=== PATIENT | female | born 1965 | race Caucasian/White ===

== ENCOUNTER 2019-12-30 11:04 | Outpatient (CLI) | payer OTHER, SELFPAY ==
--- NOTE | 2019-12-30 11:31 | MM_ITS ---
WS: [id number] DIAGNOSTIC RIGHT DIGITAL MAMMOGRAM WITH CAD HISTORY: HX OF BREAST CA, LEFT mastectomy. COMPARISON: None available. Technique: CC, MLO and ML views. Breast composition: There are scattered areas of fibroglandular density. There are a few scattered b enign calcifications. No clustered calcifications or mass. MM/[place] [id number] IMPRESSION: BI-RADS: 2-Benign FOLLOW UP: 1 Year Follow-up No prior studies for comparison. If prior outside mammograms become available f or review comparison can be performed.
== END 2019-12-30 11:05 | disposition home or self-care (01) ==
LOC: RADSHAW 11:08
PROVIDERS: Family Provider Nurse Practitioner Family; PCP Nurse Practitioner Family; Visit Provider Internal Medicine Hematology & Oncology
DX: Z85.3 Personal history of malignant neoplasm of breast (principal)
CPT/HCPCS: 77065

== ENCOUNTER 2019-12-31 13:10 | Outpatient (CLI) | payer OTHER, SELFPAY ==
[2019-12-31 19:06] LABS: Alanine Aminotransferase 37 U/L (0-33); Albumin Level 4.5 g/dL (3.5-5.2); Alkaline Phosphatase 97 IU/L (35-105); Anion Gap 19.1 (5-19); Aspartate Amino Transferase 40 U/L (0-32); Blood Urea Nitrogen 9 mg/dL (6-20); Calcium 9.8 mg/dL (8.5-10.5); Carbon Dioxide 23 mmol/L (22-29); Chloride 105 mmol/L (98-107); Chol HDL Ratio 3.49 mg/dL (0.0-4.40); Cholesterol 227 mg/dL (0-200); Globulin 3.2 g/dL (1.3-4.6); Glomerular Filtration Rate 86.9 mL/min (90-130); Glucose 55 mg/dL (65-115); HDL Cholesterol 65 mg/dL (60-100); LDL Cholesterol Calculated 148 mg/dL (50-129); LDL HDL Ratio 2.28 RATIO (0.00-3.22); Osmolality Calculated 290 mOsm/kg (285-295); Potassium 4.1 mmol/L (3.5-5.1); Sodium 143 mmol/L (136-145); Total Bilirubin 0.3 mg/dL (0.15-1.2); Total Protein 7.7 g/dL (6.6-8.7); Triglycerides 68 mg/dL (0-150)
[2019-12-31 19:07] LABS: Basophils % 0.5 %; Eosinophils # 0.1 10^3/uL (0.0-0.8); Eosinophils % 1.5 %; Hematocrit 43.5 % (37.0-47.0); Hemoglobin 13.8 g/dL (11.5-15.3); Lymphocytes # 1.6 10^3/uL (0.8-4.8); Lymphocytes % 26.5 %; Mean Corpuscular HGB Conc 31.7 g/dL (30.0-36.0); Mean Corpuscular Hemoglobin 29.3 pg (28.0-34.0); Mean Corpuscular Volume 92.4 fL (81-99); Mean Platelet Volume 11.4 fL (7.4-10.4); Monocytes # 0.3 10^3/uL (0.2-0.9); Monocytes % 5.3 %; Nucleated Red Blood Cells % 0 %; Platelet Count 212 10^3/cmm (130-400); Red Blood Count 4.71 10^6/uL (4.1-5.3); Red Cell Distribution Width 12.3 % (12.1-15.1)
== END 2019-12-31 13:11 | disposition home or self-care (01) ==
LOC: ONCMED 01-03 09:49
PROVIDERS: Absent Provider Internal Medicine Cardiovascular Disease; Family Provider Nurse Practitioner Family; PCP Nurse Practitioner Family; Visit Provider Internal Medicine Hematology & Oncology
DX: Z85.3 Personal history of malignant neoplasm of breast (principal)
CPT/HCPCS: 80053; 80061; 85025

== ENCOUNTER 2020-03-23 14:18 | Outpatient (CLI) | payer OTHER, SELFPAY ==
[2020-03-23 15:40] LABS: Basophils % 0.5 %; Eosinophils # 0.1 10^3/uL (0.0-0.8); Eosinophils % 2.2 %; Hematocrit 42.7 % (37.0-47.0); Hemoglobin 13.9 g/dL (11.5-15.3); Lymphocytes # 1.8 10^3/uL (0.8-4.8); Lymphocytes % 30.1 %; Mean Corpuscular HGB Conc 32.6 g/dL (30.0-36.0); Mean Corpuscular Hemoglobin 30.5 pg (28.0-34.0); Mean Corpuscular Volume 93.8 fL (81-99); Mean Platelet Volume 10.6 fL (7.4-10.4); Monocytes # 0.4 10^3/uL (0.2-0.9); Monocytes % 6.7 %; Neutrophils # 3.5 10^3/uL (1.8-7.7); Neutrophils % 60.3 %; Nucleated Red Blood Cells % 0 %; Platelet Count 201 10^3/cmm (130-400); Red Blood Count 4.55 10^6/uL (4.1-5.3); Red Cell Distribution Width 12.4 % (12.1-15.1); White Blood Count 5.8 10^3/uL (4.0-10.0)
[2020-03-23 16:44] LABS: Alanine Aminotransferase 41 U/L (0-33); Albumin Level 4.5 g/dL (3.5-5.2); Alkaline Phosphatase 84 IU/L (35-105); Anion Gap 19.2 (5-19); Aspartate Amino Transferase 44 U/L (0-32); Blood Urea Nitrogen 13 mg/dL (6-20); Calcium 9.6 mg/dL (8.5-10.5); Carbon Dioxide 24 mmol/L (22-29); Chloride 101 mmol/L (98-107); Globulin 3.2 g/dL (1.3-4.6); Glomerular Filtration Rate 86.9 mL/min (90-130); Glucose 75 mg/dL (65-115); Osmolality Calculated 285 mOsm/kg (285-295); Potassium 4.2 mmol/L (3.5-5.1); Sodium 140 mmol/L (136-145); Total Bilirubin 0.5 mg/dL (0.15-1.2); Total Protein 7.7 g/dL (6.6-8.7)
--- NOTE | 2020-03-24 09:21 | ONC FU_ITS ---
Dr. Atkinson follow up note Patient: Rabia Burt Unit #: [id number]: 1965 Dicatated By: Rudy Atkinson M.D.Date of Visit:Mar 23, 2020 Onc Med Follow-up/Prog Note History of Present Illness: Mrs. Rabia Burt , is a 54-year-old female who was initially diagnosed with left breast carcinoma on 09/03/2006, final pathology report showed infiltrating ductal carcinoma, high-grade, borderline ER positive HER-2/shelli negative, T2, pN 3, M0 stage IIa and at that time she underwent left modified radical mastectomy followed by systemic chemotherapy ???4 cycles and postmastectomy radiation therapy. Oncotype DX score was 47. Patient doesn't remember the name of chemotherapy regimen. And she did fine from oncology point of view but during follow-up in April 2018 she was noted to have symptoms suggestive of congestive heart failure which occurred a few days after getting the flu shot patient was seen by cardiology and her ejection fraction was 25%, she underwent cardiac angiogram which showed right coronary mid vessel lesion with a 95% stenosis and it was stented. There was also proximal vessel lesion with 70% stenosis and was also stented. With that her ejection fraction improved, as per patient her last echocardiogram done in December 2018, showed her ejection fraction was around 48%. 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 Last time she saw her medical oncologist in [place] on 12/14/2018 and she was told she has no evidence of recurrence disease at 10+ years post diagnosis and treatment and was advised to follow with cardiology regarding congestive heart failure and 6 month to yearly follow-up with oncology. Her last CBC was done on 06/01/2019 showed white blood count 4 hemoglobin 14.3 crit 42 platelets 192,000 with a normal differential and CMP was within normal limit except AST was 52 was 51, as per patient her primary care physician told her it could be due to Crestor and being monitored by her PMD. Came for follow-up, denies any specific complaints, no fever chills, no nausea or vomiting, no diarrhea or constipation, no new bony pains, patient is trying to lose weight intentionally,by watching diet and exercising. Medications: Atorvastatin Calcium 1 Tablet (of 40 mg) Oral daily, Carvedilol 1 Tablet (of 25 mg) Oral b.i.d., Clopidogrel Bisulfate 1 Tablet (of 75 mg) Oral daily, Ezetimibe 1 Tablet (of 10 mg) Oral daily, Losartan Potassium 1 Tablet (of 50 mg) Oral daily, Myrbetriq 1 Tablet (of 50 mg) Tablet SR 24 HR Oral daily, Rosuvastatin Calcium 1 Tablet (of 20 mg) Oral daily Allergies: antihistimines and Aspirin. Review of Systems: Review of Systems is not available for this patient. Vital Signs: Performed on Mar 23, 2020 15:52 Height - 60.00 in Weight - 135.6 lbs (LOW) BSA - 1.58 sq.m BMI - 26.48 Temperature - 99.0 F (HIGH) Pulse - 70 /min Respiration - 18 /min BP - 153/104 mm(hg) (HIGH) O2 Sat - 97 % Pain - 0 Performance Status: 0 - Fully active, able to carry on all predisease activities without restrictions. (ECOG) Physical Examination: ENMT - No mouth sores, no thrush, no jaundice, Respiratory - Lungs are clear, Cardiovascular - Regular rate and rhythm of heart, Abdomen - Soft, bowel sounds present, nontender, Extremities - No visible edema. Lab/Imaging: Test performed on Dec 31, 2019 13:10 Cholesterol, Total 227 mg/dL Sodium 143 mmol/L Potassium 4.1 mmol/L Triglycerides 68 mg/dL Chloride 105 mmol/L LDL Cholesterol 148 mg/dL CO2 23 mmol/L Anion Gap 19.1 HDL Cholesterol 65 mg/dL BUN 9 mg/dL Cholesterol/HDL Ratio 3.49 mg/dL Creatinine 0.7 mg/dL LDL / HDL Ratio 2.28 RATIO Cr Clearance (Est) 92.0800 mL/min eGFR 86.9 mL/min Glucose 55 mg/dL Calcium 9.8 mg/dL Protein, Total 7.7 g/dL Albumin 4.5 g/dL Globulin 3.2 g/dL Bilirubin, Total 0.3 mg/dL ALT (SGPT) 37 U/L AST (SGOT) 40 U/L Alkaline Phosphatase 97 IU/L WBC 6.0 10 3/uL RBC 4.71 10 6/uL HGB 13.8 g/dL HCT 43.5 % MCV 92.4 fL MCH 29.3 pg MCHC 31.7 g/dL RDW 12.3 % Platelet Count 212 10 3/cmm MPV 11.4 fL Neutrophils 4.0 10 3/uL Lymphocytes 1.6 10 3/uL Monocytes 0.3 10 3/uL Eosinophils 0.1 10 3/uL Basophils 0.0 10 3/uL Neutrophil % 66.0 % Lymphocyte % 26.5 % Monocyte % 5.3 % Eosinophil % 1.5 % Basophils % 0.5 % Impression: History of infiltrating ductal carcinoma of left breast, status post left modified radical mastectomy with left axillary lymph node dissection done on 09/03/2006 final pathology report showed pT2,N0,M0 stage II a,ER positive but borderline, HER-2/shelli negative Oncotype DX score 47 Status post 4 cycles of adjuvant chemotherapy followed by chest wall radiation therapy History of congestive heart failure diagnosed in April 2018 with ejection fraction 25%, status post coronary angiogram showed coronary artery disease status post stent placement. Being followed by cardiology and now with congestive heart failure management, her last echo done in November or December 2018 showed ejection fraction 48% Plan: Discussed with patient regarding her labs white blood count 5.8 hemoglobin 13.9 hematocrit 42.7 platelets 201,000, CMP is pending Clinically, patient is doing well with no signs symptom suggestive of recurrence of disease. Patient was supposed to get DEXA scan prior to this visit but due to changing her insurance, patient is considering establishing her primary care with [facility] in [place], [place] and she will get her DEXA scan there. Patient is also considering her history of breast cancer follow-up with primary care at [facility] and their women's clinic and we will see us on as-needed basis. Signed By: Rudy Atkinson M.D. <<Signature on File>>
== END 2020-03-23 14:19 | disposition home or self-care (01) ==
LOC: ONCMED 14:21
PROVIDERS: PCP Nurse Practitioner Family; Visit Provider Internal Medicine Hematology & Oncology
DX: Z08 Encounter for follow-up examination after completed treatment for malignant neoplasm (principal); Z85.3 Personal history of malignant neoplasm of breast; I50.9 Heart failure, unspecified; Z90.12 Acquired absence of left breast and nipple; Z92.21 Personal history of antineoplastic chemotherapy; Z92.3 Personal history of irradiation
CPT/HCPCS: 36415; 80053; 85025; G0463

== ENCOUNTER → 2020-06-12 14:39 | Outpatient (BNVA) | payer OTHER, SELFPAY | PROVIDERS: Family Provider Nurse Practitioner Family; PCP Nurse Practitioner Family; Visit Provider Internal Medicine Cardiovascular Disease | DX: E78.00 Pure hypercholesterolemia, unspecified (principal); I10 Essential (primary) hypertension; I25.10 Atherosclerotic heart disease of native coronary artery without angina pectoris | CPT/HCPCS: 80053; 80061; 83721 ==

== ENCOUNTER 2021-05-17 13:17 | Outpatient (CLI) | payer OTHER, SELFPAY ==
--- NOTE | 2021-05-17 13:23 | MM_ITS ---
WS: [id number] RIGHT DIGITAL diagnostic MAMMOGRAM WITH CAD HISTORY: HX OF LT BREAST CA; LT MASTECTOMY COMPARISON: 12/30/2019 Technique: CC, MLO and ML views. Breast composition: There are scattered areas of fibroglandular density. Benign calcifications scatt ered within the breast. No mass. No distortion. MM/[place] [id number] IMPRESSION: BI-RADS: 2-Benign FOLLOW UP: 1 Year Follow-up
== END 2021-05-17 13:18 | disposition home or self-care (01) ==
LOC: RADSHAW 13:22
PROVIDERS: PCP Registered Nurse; Visit Provider Family Medicine
DX: Z85.3 Personal history of malignant neoplasm of breast (principal); Z90.12 Acquired absence of left breast and nipple
CPT/HCPCS: 77065

== ENCOUNTER → 2021-06-12 14:46 | Outpatient (BNVA) | payer OTHER, SELFPAY | PROVIDERS: PCP Registered Nurse; Visit Provider Internal Medicine Cardiovascular Disease | DX: E78.00 Pure hypercholesterolemia, unspecified (principal); I42.0 Dilated cardiomyopathy; I25.10 Atherosclerotic heart disease of native coronary artery without angina pectoris; I10 Essential (primary) hypertension; I42.9 Cardiomyopathy, unspecified; I50.22 Chronic systolic (congestive) heart failure | CPT/HCPCS: 80053; 80061; 83721; 83735; 85025 ==

== ENCOUNTER → 2021-08-30 10:34 | Outpatient (BNVA) | payer OTHER, SELFPAY | PROVIDERS: PCP Registered Nurse; Visit Provider Internal Medicine Cardiovascular Disease | DX: E78.00 Pure hypercholesterolemia, unspecified (principal); I25.10 Atherosclerotic heart disease of native coronary artery without angina pectoris; I10 Essential (primary) hypertension | CPT/HCPCS: 80061; 80076 ==

== ENCOUNTER 2021-12-06 09:03 | Outpatient (CLI) | payer OTHER, SELFPAY ==
[2021-12-06 10:45] LABS: Chol HDL Ratio 3.07 mg/dL (0.0-4.40); Cholesterol 261 mg/dL (0-200); HDL Cholesterol 85 mg/dL (60-100); LDL Cholesterol Calculated 162 mg/dL (50-129); LDL HDL Ratio 1.91 RATIO (0.00-3.22); Triglycerides 69 mg/dL (0-150)
== END 2021-12-06 09:04 | disposition home or self-care (01) ==
PROVIDERS: PCP Registered Nurse; Visit Provider Internal Medicine Cardiovascular Disease
DX: E78.00 Pure hypercholesterolemia, unspecified (principal)
CPT/HCPCS: 80061

== ENCOUNTER 2022-03-29 13:55 | Outpatient (CLI) | payer OTHER, SELFPAY ==
--- NOTE | 2022-03-29 14:04 | MM_ITS ---
WS: [id number] DIAGNOSTIC RIGHT DIGITAL BREAST TOMOSYNTHESIS MAMMOGRAPHY WITH CAD. HISTORY: HX OF BREAST Ca; lt MAST COMPARISON: 05/17/2021 and 12/30/2019 Technique: CC, MLO and ML views. Breast composition: There are scattered areas of fibroglandular density. No suspicious masses or sonal cifications. Benign lymph nodes towards the axilla. MM/[place] [id number] IMPRESSION: BI-RADS: 2-Benign FOLLOW UP: 1 Year Follow-up
== END 2022-03-29 13:56 | disposition home or self-care (01) ==
PROVIDERS: PCP Registered Nurse; Visit Provider Registered Nurse
DX: Z85.3 Personal history of malignant neoplasm of breast (principal); Z90.11 Acquired absence of right breast and nipple
CPT/HCPCS: 77061

== ENCOUNTER 2023-01-07 12:46 | Emergency (ER) | payer OTHER, SELFPAY ==
[2023-01-07] VITALS (14 sets, daily range): BP systolic 136–155; BP diastolic 76–93; PULSE 75–88; RESP 16–23; TEMP 36.6; O2SAT 97–99
--- NOTE | 2023-01-07 12:50 | ED_ITS ---
HPI - Fall General: Chief Complaint: Fall Stated Complaint: FALL/ HEAD & NECK PAIN Time Seen by Provider: 01/07/23 12:50 Source: patient Mode of arrival: EMS History of Present Illness: 57-year-old female presents to the emergency room after a fall at home. She is on clopidogrel. She was going down a short flight of stairs stumbled and fell and landed on her face there was a brief loss of consciousness no vomiting. This was witnessed by her significant other who called the ambulance. On arrival here she has blood about her nares and lips as well as some minor abrasions on her face she cannot recall anything that happene d she remembers being brought here by the ambulance but cannot recall anything prior to that. No vomiting since the episode. Report from EMS that she was fixated on certain objects and tasks initially seen and evaluated the patient on scene. She denies any chest pain or difficulty breathing denies any other injuries anywhere else. She does not recall ever having episodes of passing out before. MD complaint: fall Onset (ago): minute(s) Fall from: standing Fall witnessed: yes, by family Place fall occurred: home Loss of consciousness: Seconds Prolonged down time: no Symptoms prior to fall: none Context: tripped/slipped Location of injury: head, face and neck Associated symptoms-after fall: Denies abdominal pain, chest pain, confusion, difficulty walking, headache(s), hematuria, lightheadedness, neck pain, numbness, short of breath, vertigo or weakness Review of Systems Const: Denies: fever(s), chills, body aches, change in appetite, fatigue or malaise ENMT: Denies: throat pain, ear or mastoid pain, nasal discharge or nasal congestion Card: Denies: chest pain or lightheadedness Resp: Denies: dyspnea, productive cough or non-productive cough GI: Denies: abdominal pain : Denies: hematuria Musc: Denies: neck pain Skin/Breast: Denies: rash or pruritus Neuro: Denies: headache(s), difficulty walking, vertigo or confusion PFS ED PFSH: Medical History CAD (coronary artery disease) Chronic systolic heart failure HTN (hypertension) Hypercholesteremia Family History Other Cancer Myocardial infarction Pacemaker Social History Smoking and tobacco status: former smoker Alcohol intake: current Physical Exam Const: GENERAL APPEARANCE: cooperative and comfortable ORIENTATION/CONSCIOUSNESS: Yes awake and Yes confused HENMT: COMMON NORMALS: normocephalic and hearing grossly normal bilaterally HEAD & SCALP: normocephalic OTHER: Deformity of nasal bone Eye: COMMON NORMALS: Equal, round and reactive pupils present, EOMs intact bilaterally and conjunctivae normal CONJUNCTIVA: Yes conjunctivae normal PUPIL: Yes Equal, round and reactive pupils present Resp: COMMON NORMALS: normal respiratory effort, No retractions, No use of accessory muscles and clear to auscultation bilaterally AUSCULTATION: clear to auscultation bilaterally Cardio: COMMON NORMALS: regular rate, regular rhythm and No murmurs present (Cardio) RATE: regular rate RHYTHM: regular rhythm GI: COMMON NORMALS: Soft to palpation and No hepatosplenomegaly present AUSCULTATION: Yes normoactive bowel sounds PALPATION: Yes Soft to palpation, No Tenderness to palpation present (GI), No Guarding due to palpation present (GI) and Yes No hepatosplenomegaly present Extremity: COMMON NORMALS: normal to inspection, capillary refill normal, no clubbing, cyanosis or edema, no calf tenderness and no pedal edema Skin: COMMON NORMALS: no rashes or lesions noted GENERAL SKIN EXAM: no rashes or lesions noted Course 2 Vital Signs: Vital signs: Vital Signs Temperature 97.9 F 01/07/23 12:46 Pulse Rate 82 01/07/23 13:55 Respiratory Rate 16 01/07/23 13:55 Blood Pressure 155/84 01/07/23 14:00 Pulse Oximetry 98 01/07/23 14:00 Oxygen Delivery Me thod 01/07/23 13:55 MDM - Fall Medical Decision Making C-spine cleared on the CT. CT this brain shows subarachnoid hemorrhage facial bones show a nasal bone fracture. [facility]red to [facility] receiving transfer via air ambulance for subarachnoid hemorrhage on anticoagulant. Medical Records I reviewed the patient's medical records. Lab Data I reviewed the patient's lab results. 01/07/23 13:00 01/07/23 13:00 Radiology Impressions Cervical Spine CT 01/07/23 12:54 IMPRESSION: No evidence of acute fracture or dislocation. Face CT 01/07/23 12:54 IMPRESSION: 1. Minimally displaced RIGHT nasal bone fracture. 2. No other visualized acute facial fractures. 3. Soft tissue edema overlying the nasal bones and mid face Head CT 01/07/23 12:55 IMPRESSION: 1. Small amount of subarachnoid hemorrhage in the RIGHT greater than LEFT frontal lobes and LEFT parietal lobe. 2. Tiny amount of subarachnoid hemorrhage in the LEFT inferior parasagittal frontal lobe. 3. No significant mass effect or midline shift. No hydrocephalus. Notified Rome Tong DO at 01/07/2023 1:41 PM. Laboratory Results WBC 3.4 10^3/uL (4.0-10.0) L 01/07/23 13:00 RBC 3.92 10^6/uL (4.1-5.3) L 01/07/23 13:00 Hgb 12.3 g/dL (11.5-15.3) 01/07/23 13:00 Hct 37.0 % (37.0-47.0) 01/07/23 13:00 MCV 94.4 fl (81-99) 01/07/23 13:00 MCH 31.4 pg (28.0-34.0) 01/07/23 13:00 MCHC 33.2 g/dL (30.0-36.0) 01/07/23 13:00 RDW 12.0 % (12.1-15.1) L 01/07/23 13:00 Plt Count 122 10^3/cmm (130-400) L 01/07/23 13:00 MPV 11.2 fL (7.4-10.4) H 01/07/23 13:00 Neut % (Auto) 55.9 % 01/07/23 13:00 Lymph % (Auto) 25.9 % 01/07/23 13:00 [place] % (Auto) 13.5 % 01/07/23 13:00 Eos % (Auto) 3.5 % 01/07/23 13:00 Baso % (Auto) 0.9 % 01/07/23 13:00 Neut # (Auto) 1.90 10^3/uL (1.8-7.7) 01/07/23 13:00 Lymph # (Auto) 0.9 10^3/uL (0.8-4.8) 01/07/23 13:00 [place] # (Auto) 0.5 10^3/uL (0.2-0.9) 01/07/23 13:00 Eos # (Auto) 0.1 10^3/uL (0.0-0.8) 01/07/23 13:00 Baso # (Auto) 0.0 10^3/uL (0.0-0.1) 01/07/23 13:00 Nucleated RBC % (auto) 0 % 01/07/23 13:00 Nucleated RBCs # 0.0 /100WBC 01/07/23 13:00 Sodium 139 mmol/L (136-145) 01/07/23 13:00 Potassium 3.8 mmol/L (3.5-5.1) 01/07/23 13:00 Chloride 102 mmol/L (98-107) 01/07/23 13:00 Carbon Dioxide 21 mmol/L (22-29) L 01/07/23 13:00 Anion Gap 19.8 (5-19) H 01/07/23 13:00 BUN 18 mg/dL (6-20) 01/07/23 13:00 Creatinine 1.0 mg/dL (0.5-0.9) H 01/07/23 13:00 GFR Calculation 56.9 mL/min (90-130) L 01/07/23 13:00 Glucose 90 mg/dL (65-115) 01/07/23 13:00 POC Glucose 97 mg/dL (70-110) 01/07/23 12:50 Calculated Osmolality 289 mOsm/kg (285-295) 01/07/23 13:00 Calcium 9.0 mg/dL (8.5-10.5) 01/07/23 13:00 Total Bilirubin 0.8 mg/dL (0.15-1.2) 01/07/23 13:00 AST 195 U/L (0-32) H 01/07/23 13:00 ALT 192 U/L (0-33) H 01/07/23 13:00 Alkaline Phosphatase 103 U/L (35-105) 01/07/23 13:00 Total Protein 6.7 g/dL (6.6-8.7) 01/07/23 13:00 Albumin 3.9 g/dL (3.5-5.2) 01/07/23 13:00 Globulin 2.8 g/dL (1.3-4.6) 01/07/23 13:00 Urine Color Yellow (Yellow) 01/07/23 14:08 Urine Appearance Clear (CLEAR) 01/07/23 14:08 Urine pH 5 (5-7) 01/07/23 14:08 Ur Specific [place] 1.010 (1.005-1.030) 01/07/23 14:08 Urine Protein Neg (Negative) 01/07/23 14:08 Urine Glucose (UA) Norm (Normal) 01/07/23 14:08 Urine Ketones Negative (Negative) 01/07/23 14:08 Urine Blood Neg (Negative) 01/07/23 14:08 Urine Nitrate Negative (Negative) 01/07/23 14:08 Urine Bilirubin Neg (Negative) 01/07/23 14:08 Urine Urobilinogen Neg mg/dL (Negative) 01/07/23 14:08 Ur Leukocyte Esterase Negative (Negative) 01/07/23 14:08 Discharge Plan Discharge Patient Disposition: Transfer to ED Clinical Impression: Subarachnoid hemorrhage, Fall, Closed fracture nasal bone Condition: Stable Prescriptions: No Action clopidogrel 75 mg tablet 75 mg PO DAILY losartan 50 mg tablet 50 mg PO DAILY nitroglycerin 0.4 mg tablet, sublingual 0.4 mg sublingual Q5M PRN (Reason: chest pain) Qty: 25 4RF Rx Instructions: do not exceed 3 doses per episode carvedilol 25 mg tablet 25 mg PO BID Rx Instructions: must administer with a meal/food furosemide 20 mg tablet 20 mg PO DAILY PRN (Reason: edema) Qty: 30 6RF Praluent Pen 75 mg/mL pen injector 75 mg SUBCUT Q14D Qty: 2 6RF Rx Instructions: inject into abdomen, thigh, or upper arm (deltoid muscle); rotate sites alprazolam 1 mg tablet 1 mg PO DAILY PRN (Reason: Anxiety) tolterodine 4 mg capsule,extended release 24hr 4 mg PO DAILY Referrals: Marianela Curtis [Primary Care Provider] - Coding Level of Care Code ED Supervisor Color Making for Fritz Thibodeaux
--- NOTE | 2023-01-07 12:54 | CT_ITS ---
WS: [id number] CT FACIAL BONES TECHNIQUE: Noncontrast facial bones with coronal and sagittal reformatted images. CLINICAL INFORMATION: trauma COMPARISON: None. DLP: 1485.[address] scans at [facility] use at least one of these dose optimization techniques: automated e xposure control; mA and/or kV adjustment per patient size (includes targeted exams where dose is matc hed to clinical indication); or iterative reconstruction. FINDINGS: Soft tissue edema overlying the anterior nasal bones. Small amount of subcutaneous emphysema. Minimal ly displaced RIGHT nasal bone fractures. Chronic appearing LEFT to RIGHT nasal septal deviation. Mild mucosal thickening in the ethmoid air cells. Fluid in the nasal turbinates. Maxillary sinuses and sp henoid sinuses are well aerated. Mastoid air cells are well aerated. Normal pterygoid plates. Normal zygoma. Inferior orbits appear in tact. Normal lamina papyracea. Lateral orbits appear intact. No evidence of mandibular fracture dislo cation. CT/CT facial bones wo con* [id number] IMPRESSION: 1. Minimally displaced RIGHT nasal bone fracture. 2. No other visualized acute facial fractures. 3. Soft tissue edema overlying the nasal bones and mid face
--- NOTE | 2023-01-07 12:54 | CT_ITS ---
WS: [id number] CT CERVICAL TRAUMA TECHNIQUE: Noncontrast CT of the cervical spine with coronal and sagittal reformatted images. CLINICAL INFORMATION: trauma COMPARISON: None. DLP: 1485.[address] scans at [facility] use at least one of these dose optimization techniques: automated e xposure control; mA and/or kV adjustment per patient size (includes targeted exams where dose is matc hed to clinical indication); or iterative reconstruction. FINDINGS: Straightening of the normal cervical lordosis. Mild spondylitic changes. Disc space narrowing worse a t C5-C6 and C6-C7. Normal craniocervical junction. Normal C1-C2 articulation. Dens is normal in appea sherrell. Normal occipital condyles. No high-grade spinal canal narrowing. Normal C1 ring. No evidence o f acute fracture or dislocation. Small 6 mm low-attenuation RIGHT thyroid nodule. Normal prevertebral soft tissues. Mastoids air cells are well aerated. CT/CT cervical spin wo con* [id number] IMPRESSION: No evidence of acute fracture or dislocation.
[2023-01-07 12:55] LABS: Glucose Point of Care 97 mg/dL (70-110)
--- NOTE | 2023-01-07 12:55 | CT_ITS ---
WS: [id number] CT HEAD TECHNIQUE: Noncontrast CT of the head obtained from the skullbase to the vertex. CLINICAL INFORMATION: trauma COMPARISON: None. DLP: 1485.[address] scans at [facility] use at least one of these dose optimization techniques: automated e xposure control; mA and/or kV adjustment per patient size (includes targeted exams where dose is matc hed to clinical indication); or iterative reconstruction. FINDINGS: Soft tissue edema overlying the anterior facial soft tissues. No calvarial fractures. Masto id air cells well aerated. Normal posterior nasopharynx. Small amount of subarachnoid hemorrhage within the RIGHT frontal lobe and LEFT parietal lobe. Additio nal suggestion of a tiny amount of subarachnoid hemorrhage in the LEFT frontal lobe. Tiny amount of s ubarachnoid hemorrhage in the LEFT inferior parasagittal frontal lobe. CT/CT head wo con* [id number] IMPRESSION: 1. Small amount of subarachnoid hemorrhage in the RIGHT greater than LEFT fron [place] lobes and LEFT parietal lobe. 2. Tiny amount of subarachnoid hemorrhage in the LEFT inferior parasagittal fr ontal lobe. 3. No significant mass effect or midline shift. No hydrocephalus. Notified Rome Tong DO at 01/07/2023 1:41 PM.
[2023-01-07 13:09] LABS: Basophils % 0.9 %; Eosinophils # 0.1 10^3/uL (0.0-0.8); Eosinophils % 3.5 %; Hemoglobin 12.3 g/dL (11.5-15.3); Lymphocytes # 0.9 10^3/uL (0.8-4.8); Lymphocytes % 25.9 %; Mean Corpuscular HGB Conc 33.2 g/dL (30.0-36.0); Mean Corpuscular Hemoglobin 31.4 pg (28.0-34.0); Mean Corpuscular Volume 94.4 fl (81-99); Mean Platelet Volume 11.2 fL (7.4-10.4); Monocytes # 0.5 10^3/uL (0.2-0.9); Monocytes % 13.5 %; Neutrophils % 55.9 %; Nucleated Red Blood Cells % 0 %; Platelet Count 122 10^3/cmm (130-400); Red Blood Count 3.92 10^6/uL (4.1-5.3); White Blood Count 3.4 10^3/uL (4.0-10.0)
[2023-01-07 13:24] LABS: Alanine Aminotransferase 192 U/L (0-33); Albumin Level 3.9 g/dL (3.5-5.2); Alkaline Phosphatase 103 U/L (35-105); Anion Gap 19.8 (5-19); Aspartate Amino Transferase 195 U/L (0-32); Blood Urea Nitrogen 18 mg/dL (6-20); Carbon Dioxide 21 mmol/L (22-29); Chloride 102 mmol/L (98-107); Globulin 2.8 g/dL (1.3-4.6); Glomerular Filtration Rate 56.9 mL/min (90-130); Glucose 90 mg/dL (65-115); Osmolality Calculated 289 mOsm/kg (285-295); Potassium 3.8 mmol/L (3.5-5.1); Sodium 139 mmol/L (136-145); Total Bilirubin 0.8 mg/dL (0.15-1.2); Total Protein 6.7 g/dL (6.6-8.7)
--- NOTE | 2023-01-07 13:27 | ECG_ITS ---
[facility] Test Date: 2023-01-07 Pat Name: Rabia Burt Department: Room: Gender: Female Caul Dresser: : 1965 Requested By: Rome Perdomo Order Number: [id number] To MD: Tracy Michelle M.D. Measurements Intervals [place] Rate: 78 P: 57 NC: 184 QRS: 64 QRSD: 90 T: 66 QT: 400 QTc: 457 Interpretive Statements SINUS RHYTHM No previous ECG available for comparison Electronically Signed On 01-08-2023 2:18:17 CDT by Tracy Michelle M.D. [email or web address]
[2023-01-07 14:31] LABS: Add Urine Microscopic? NO; Charge for UA Resulting for Rev
[2023-01-07 14:35] LABS: Bilirubin Urine Neg (Negative); Blood Urine Neg (Negative); Glucose Urine UA Norm (Normal); Ketones Urine Negative (Negative); Leukocyte Esterase Urine Negative (Negative); Nitrate Urine Negative (Negative); Protein Urine Neg (Negative); Urine Appearance Clear (CLEAR); Urine Color Yellow (Yellow); Urobilinogen Urine Neg (Negative); pH Urine 5 (5-7)
== END 2023-01-07 14:20 ==
PROVIDERS: Emergency Provider Family Medicine; PCP Registered Nurse
DX: S02.2XXA Fracture of nasal bones, initial encounter for closed fracture (principal); S06.6XAA Traumatic subarachnoid hemorrhage with loss of consciousness status unknown, initial encounter; Z79.02 Long term (current) use of antithrombotics/antiplatelets; I25.10 Atherosclerotic heart disease of native coronary artery without angina pectoris; I11.0 Hypertensive heart disease with heart failure; I50.22 Chronic systolic (congestive) heart failure; Z87.891 Personal history of nicotine dependence; W01.0XXA Fall on same level from slipping, tripping and stumbling without subsequent striking against object, initial encounter
CPT/HCPCS: 36415; 36416; 70450; 70486; 72125; 80053; 81003; 82962; 85025; 93005; 99285

== ENCOUNTER 2023-02-24 12:51 | Emergency (ER) | payer OTHER, SELFPAY ==
[2023-02-24 12:52] VITALS: BP 111/62; PULSE 83; RESP 18; TEMP 36.8; O2SAT 95; BMI 26.7
--- NOTE | 2023-02-24 12:53 | ECG_ITS ---
[facility] Test Date: 2023-02-24 Pat Name: Rabia Burt Department: Room: Gender: Female Director Learning And Development: : 1965 Requested By: Jewel Kelly Order Number: [id number] [id number] MD: Philip Amezquita M.D. Measurements Intervals [place] Rate: 84 P: 64 IA: 185 QRS: 67 QRSD: 88 T: 84 QT: 439 QTc: 521 Interpretive Statements SINUS RHYTHM POSSIBLE LEFT ATRIAL ENLARGEMENT [-0.1mV P-WAVE IN V1/V2] PROLONGED QT INTERVAL Compared to ECG 01/07/2023 13:27:00 Prolonged QT interval now present Electronically Signed On 02-24-2023 23:26:38 CDT by Philip Amezquita M.D. [email or web address]
[2023-02-24 13:26] VITALS: BP 111/62; PULSE 84; O2SAT 98
--- NOTE | 2023-02-24 13:29 | XRR_ITS ---
PROCEDURE INFORMATION: Exam: XR Chest Exam date and time: 02/24/2023 12:36 PM Age: 57 years old Clinical indication: Other: Syncope; Prior surgery; Surgery date: 6+ months; Surgery type: Breast; Additional info: Syncope and collapse TECHNIQUE: Imaging protocol: Radiologic exam of the chest. Views: 1 view. COMPARISON: CT cervical spin wo con* [id number] 01/07/2023 1:11 PM FINDINGS: Lungs: Lungs are clear. Pleural spaces: There is no pleural effusion or pneumothorax. Heart/Mediastinum: Cardiomediastinal contours are unremarkable. Bones/joints: Bones are unremarkable. XR/XR chest 1V portable [id number] IMPRESSION: No acute findings.
--- NOTE | 2023-02-24 13:29 | CTR_ITS ---
PROCEDURE INFORMATION: Exam: CT Head Without Contrast Exam date and time: 02/24/2023 2:00 PM Age: 57 years old Clinical indication: Syncope and collapse TECHNIQUE: Imaging protocol: Computed tomography of the head without contrast. Radiation optimization: All CT scans at this facility use at least one of these dose optimization techniques: automated exposure control; mA and/or kV adjustment per patient size (includes targeted exams where dose is matched to clinical indication); or iterative reconstruction. REPORTING DATA: Count of CT and Cardiac NM exams in prior 12 months: This patient has received 3 known CTs and 0 known cardiac nuclear medicine studies in the 12 months prior to the current study. COMPARISON: CT head wo con* [id number] 01/07/2023 1:11 PM RADIATION DOSE METRICS: Total DLP (mGy-cm): 981.38 FINDINGS: Brain: Right frontoparietal mixed density subdural fluid collection measures 11 mm in thickness. There is progressively increased attenuation in the dependent portion of the collection. There is mild mass effect with 2-3 mm leftward midline shift. No overlying sulcal effacement. Brain is unremarkable otherwise. Cerebral ventricles: There is no significant ventricular dilation. The basal cisterns are unremarkable. Paranasal sinuses: The paranasal sinuses are clear. Mastoid air cells: The mastoid air cells are clear. Bones/joints: The calvarium is intact. Soft tissues: The visible extracranial soft tissues are unremarkable. CT/CT head wo con* [id number] IMPRESSION: 1. Age-indeterminate mixed density right frontoparietal subdural hematoma of 11 mm thickness producing mild mass effect with 2-3 mm leftward midline shift. This finding is new since 01/07/2023. 2. Subarachnoid hemorrhage visible on 01/07/2023 has resolved.
--- NOTE | 2023-02-24 13:29 | W.ED.WEAKNES ---
HPI - Weakness General: Chief complaint: Weakness Stated complaint: RAPID RESPONSE Time Seen by Provider: 02/24/23 13:11 History of Present Illness: 57-year-old female presents to the emergency department chief complaint of having Did not been eating or drinking anything substantial today in which she passed out in her chair a she was a rapid response was called per staff patient was unresponsive with a low blood pressure of 80s over 50s patient was transported down to the ER for further assessment and management. Patient does not recall any cardiac history reports no chest pain palpitations or shortness of breath prior to her event she does reports she has been dieting excessively and has had minimal water today patient does not report striking her head during the event does not recall any other associated symptoms. Associated symptoms: Denies chest pain, chills, fever(s), headache(s), nausea or vomiting Review of Systems General: Reports: 10 or more systems reviewed and unremarkable except in HPI and below Const: Denies: fever(s), chills, fatigue or malaise Eyes: Denies: change in vision or blurry vision Card: Denies: chest pain or palpitations Resp: Denies: dyspnea or productive cough GI: Denies: abdominal pain, nausea or vomiting : Denies: flank pain Musc: Denies: extremity pain or extremity swelling Skin/Breast: Denies: rash or pruritus Neuro: Reports: difficulty walking (Syncope); Denies: headache(s) Psych: Denies: anxiety or depression [place]/Lymph: Denies: easy bleeding All/Imm: Denies: urticaria, throat swelling or facial swelling [facility] PFSH: Medical History CAD (coronary artery disease) Chronic systolic heart failure HTN (hypertension) Hypercholesteremia Family History Other Cancer Myocardial infarction Pacemaker Social History Smoking and tobacco status: former smoker Alcohol intake: current Substance/Drug Use: never Physical Exam Narrative: EXAM NARRATIVE: Patient has no focal neurodeficits on exam with a GCS of 15 with a NIH of 0 Const: COMMON NORMALS: no acute distress, patient oriented x3 and healthy appearing HENMT: COMMON NORMALS: normocephalic and atraumatic HEAD & SCALP: normocephalic and atraumatic Eye: COMMON NORMALS: Equal, round and reactive pupils present and EOMs intact bilaterally PUPIL: Yes Equal, round and reactive pupils present Neck/C-Spine: COMMON NORMALS: full ROM, supple and no JVD Lymph: LYMPHATIC: no lymphadenopathy noted Chest: COMMONS NORMALS: normal inspection of the chest and normal palpation of entire chest wall Resp: COMMON NORMALS: normal respiratory effort, No retractions and clear to auscultation bilaterally EFFORT & INSPECTION: Yes able to speak in complete sentences and Yes symmetric chest movement AUSCULTATION: clear to auscultation bilaterally Cardio: COMMON NORMALS: no JVD, regular rate and regular rhythm RATE: regular rate RHYTHM: regular rhythm GI: COMMON NORMALS: Normal to inspection, nondistended, normoactive bowel sounds present, Soft to palpation and non-tender INSPECTION: Yes normal to inspection PALPATION: Yes Soft to palpation : COMMON NORMALS: Yes no CVA tenderness BLADDER/KIDNEY EXAM: Yes no CVA tenderness Back/Pelvis: COMMON NORMALS: no CVA tenderness Extremity: COMMON NORMALS: normal to inspection and full ROM Neuro: COMMON NORMALS: patient oriented x3, CN's II-XII intact bilaterally, moves all extremities and no focal motor deficits Psych: COMMON NORMALS: mental status grossly normal, Normal thought process present, cooperative and normal affect THOUGHT PROCESS: Normal thought process present Skin: COMMON NORMALS: no rashes or lesions noted GENERAL SKIN EXAM: no rashes or lesions noted Course Vital Signs: Vital signs: Vital Signs Temperature 98.2 F 02/24/23 12:52 Pulse Rate 80 02/24/23 16:38 Respiratory Rate 22 H 02/24/23 16:38 Blood Pressure 149/92 02/24/23 16:38 Pulse Oximetry 97 02/24/23 16:38 Oxygen Delivery Me thod Room Air 02/24/23 12:52 MDM - Weakness Medical Decision Making Due to the patient's symptoms and condition a basic cardio and neuro work-up will be obtained we will continue to follow. and it was noted by nursing staff during their initial assessment the patient did report having thoughts intermittently of homicidal suicide upon direct questioning by myself the patient reports these are just fleeting which currently she has no thoughts of homicide or suicide does report that life is rough however she is currently seeing therapist as well as S resource. We will continue to follow with a basic medical work-up. Patient was found to have an 11 mm right sided frontoparietal subdural hematoma with 2 to 3 mm of shift left to right patient's blood alcohol level was also found to be elevated to 251 advised patient and family these findings which I recommend transfer to high-level care with trauma services in which after long debate the patient has agreed as per son's request to be transferred to [facility]. Patient be going by ground transportation patient was provided 1 dose of Ativan for her anxiety. Lab Data 02/24/23 13:04 02/24/23 13:04 Radiology Impressions Chest X-Ray 02/24/23 13: IMPRESSION: No acute findings. Head CT 02/24/23 13: IMPRESSION: 1. Age-indeterminate mixed density right frontoparietal subdural hematoma of 11 mm thickness producing mild mass effect with 2-3 mm leftward midline shift. This finding is new since 01/07/2023. 2. Subarachnoid hemorrhage visible on 01/07/2023 has resolved. ADDENDUM: 02/24/23 1443 THIS REPORT CONTAINS FINDINGS THAT MAY BE CRITICAL TO PATIENT CARE. The findings were verbally communicated via telephone conference with JARRED HERNANDEZ at 2:42 PM CDT on 02/24/2023. The findings were acknowledged and understood. Laboratory Results WBC 4.0 10^3/uL (4.0-10.0) 02/24/23 13:04 RBC 4.04 10^6/uL (4.1-5.3) L 02/24/23 13:04 Hgb 12.9 g/dL (11.5-15.3) 02/24/23 13:04 Hct 38.9 % (37.0-47.0) 02/24/23 13:04 MCV 96.3 fl (81-99) 02/24/23 13:04 MCH 31.9 pg (28.0-34.0) 02/24/23 13:04 MCHC 33.2 g/dL (30.0-36.0) 02/24/23 13:04 RDW 12.0 % (12.1-15.1) L 02/24/23 13:04 Plt Count 188 10^3/cmm (130-400) 02/24/23 13:04 MPV 11.1 fL (7.4-10.4) H 02/24/23 13:04 Neut % (Auto) 57.2 % 02/24/23 13:04 Lymph % (Auto) 30.7 % 02/24/23 13:04 [place] % (Auto) 7.7 % 02/24/23 13:04 Eos % (Auto) 2.7 % 02/24/23 13:04 Baso % (Auto) 1.7 % 02/24/23 13:04 Neut # (Auto) 2.29 10^3/uL (1.8-7.7) 02/24/23 13:04 Lymph # (Auto) 1.2 10^3/uL (0.8-4.8) 02/24/23 13:04 [place] # (Auto) 0.3 10^3/uL (0.2-0.9) 02/24/23 13:04 Eos # (Auto) 0.1 10^3/uL (0.0-0.8) 02/24/23 13:04 Baso # (Auto) 0.1 10^3/uL (0.0-0.1) 02/24/23 13:04 Nucleated RBC % (auto) 0 % 02/24/23 13:04 Nucleated RBCs # 0.0 /100WBC 02/24/23 13:04 Sodium 138 mmol/L (136-145) 02/24/23 13:04 Potassium 3.7 mmol/L (3.5-5.1) 02/24/23 13:04 Chloride 102 mmol/L (98-107) 02/24/23 13:04 Carbon Dioxide 20 mmol/L (22-29) L 02/24/23 13:04 Anion Gap 19.7 (5-19) H 02/24/23 13:04 BUN 7 mg/dL (6-20) 02/24/23 13:04 Creatinine 0.6 mg/dL (0.5-0.9) 02/24/23 13:04 GFR Calculation 102.7 mL/min (90-130) 02/24/23 13:04 Glucose 99 mg/dL (65-115) 02/24/23 13:04 Calculated Osmolality 284 mOsm/kg (285-295) L 02/24/23 13:04 Calcium 8.6 mg/dL (8.5-10.5) 02/24/23 13:04 Total Bilirubin 1.0 mg/dL (0.15-1.2) 02/24/23 13:04 AST 327 U/L (0-32) H 02/24/23 13:04 ALT 190 U/L (0-33) H 02/24/23 13:04 Alkaline Phosphatase 169 U/L (35-105) H 02/24/23 13:04 Troponin T Baseline 10 ng/L (0-10) 02/24/23 13:04 Troponin T 120 Minute 7.08 ng/L (0-10) 02/24/23 15:37 Delta Troponin T -2.92 ABS# (0-10) L 02/24/23 15:37 NT-Pro-B Natriuret Pep 2503 pg/mL (0-125) H 02/24/23 13:04 Total Protein 6.9 g/dL (6.6-8.7) 02/24/23 13:04 Albumin 4.0 g/dL (3.5-5.2) 02/24/23 13:04 Globulin 2.9 g/dL (1.3-4.6) 02/24/23 13:04 Urine Color Yellow (Yellow) 02/24/23 13:45 Urine Appearance Hazy (CLEAR) A 02/24/23 13:45 Urine pH 5 (5-7) 02/24/23 13:45 Ur Specific [place] 1.015 (1.005-1.030) 02/24/23 13:45 Urine Protein Neg (Negative) 02/24/23 13:45 Urine Glucose (UA) Norm (Normal) 02/24/23 13:45 Urine Ketones Negative (Negative) 02/24/23 13:45 Urine Blood Neg (Negative) 02/24/23 13:45 Urine Nitrate Negative (Negative) 02/24/23 13:45 Urine Bilirubin Neg (Negative) 02/24/23 13:45 Urine Urobilinogen Norm mg/dL (Negative) 02/24/23 13:45 Ur Leukocyte Esterase 1+ (Negative) H 02/24/23 13:45 Urine RBC 0-4 /hpf (0-2) H 02/24/23 13:45 Urine WBC 0-4 /hpf (0-5) H 02/24/23 13:45 Ur Squamous Epith Cells 5-10 /hpf (0-5) H 02/24/23 13:45 Amorphous Sediment Not Reportable 02/24/23 13:45 Urine Bacteria 1+ /hpf (NONE) H 02/24/23 13:45 Hyaline Casts 55-80 /lpf H 02/24/23 13:45 Urine Mucus 1+ /hpf 02/24/23 13:45 Urine Opiates Screen Negative ng/mL (Negative) 02/24/23 13:45 Ur Barbiturates Screen Negative ng/mL (Negative) 02/24/23 13:45 Ur Phencyclidine Scrn Negative ng/mL (Negative) 02/24/23 13:45 Ur Amphetamines Screen Negative ng/mL (Negative) 02/24/23 13:45 U Benzodiazepines Scrn Negative ng/mL (Negative) 02/24/23 13:45 Urine Cocaine Screen Negative ng/mL (Negative) 02/24/23 13:45 U Marijuana (THC) Screen Negative ng/mL (Negative) 02/24/23 13:45 Ethyl Alcohol 251 mg/dL (0-10) H 02/24/23 13:04 Discharge Plan Discharge Patient Disposition: Transfer to ED Clinical Impression: Intracranial subdural hematoma, Alcohol abuse, Fall from standing Condition: Stable Prescriptions: No Action clopidogrel 75 mg tablet 75 mg PO DAILY losartan 50 mg tablet 50 mg PO DAILY nitroglycerin 0.4 mg tablet, sublingual 0.4 mg sublingual Q5M PRN (Reason: chest pain) Qty: 25 4RF Rx Instructions: do not exceed 3 doses per episode carvedilol 25 mg tablet 25 mg PO BID Rx Instructions: must administer with a meal/food furosemide 20 mg tablet 20 mg PO DAILY PRN (Reason: edema) Qty: 30 6RF Praluent Pen 75 mg/mL pen injector 75 mg SUBCUT Q14D Qty: 2 6RF Rx Instructions: inject into abdomen, thigh, or upper arm (deltoid muscle); rotate sites zinc acetate 50 mg (zinc) Capsule 50 mg PO DAILY pravastatin 20 mg Tablet 20 mg PO DAILY Vitamin D3 25 mcg (1,000 unit) Capsule 25 mcg PO DAILY tolterodine 4 mg capsule,extended release 24hr 4 mg PO DAILY Referrals: Marianela Curtis [Primary Care Provider] - Coding Level of Care Code ED Retail Sales Vitamin Consultant for Chg Fwd
[2023-02-24 13:39] LABS: Basophils # 0.1 10^3/uL (0.0-0.1); Basophils % 1.7 %; Eosinophils # 0.1 10^3/uL (0.0-0.8); Eosinophils % 2.7 %; Hematocrit 38.9 % (37.0-47.0); Hemoglobin 12.9 g/dL (11.5-15.3); Lymphocytes # 1.2 10^3/uL (0.8-4.8); Lymphocytes % 30.7 %; Mean Corpuscular HGB Conc 33.2 g/dL (30.0-36.0); Mean Corpuscular Hemoglobin 31.9 pg (28.0-34.0); Mean Corpuscular Volume 96.3 fl (81-99); Mean Platelet Volume 11.1 fL (7.4-10.4); Monocytes # 0.3 10^3/uL (0.2-0.9); Monocytes % 7.7 %; Neutrophils # 2.29 10^3/uL (1.8-7.7); Neutrophils % 57.2 %; Nucleated Red Blood Cells % 0 %; Platelet Count 188 10^3/cmm (130-400); Red Blood Count 4.04 10^6/uL (4.1-5.3)
[2023-02-24] MEDS: sodium chloride 0.9% 1,000 ML 999 ML IV (13:48)
[2023-02-24 14:04] LABS: Troponin(5th) Baseline 10 ng/L (0-10)
[2023-02-24 14:09] LABS: Alanine Aminotransferase 190 U/L (0-33); Alcohol Level 251 mg/dL (0-10); Alkaline Phosphatase 169 U/L (35-105); Blood Urea Nitrogen 7 mg/dL (6-20); Calcium 8.6 mg/dL (8.5-10.5); Carbon Dioxide 20 mmol/L (22-29); Chloride 102 mmol/L (98-107); Globulin 2.9 g/dL (1.3-4.6); Glomerular Filtration Rate 102.7 mL/min (90-130); Glucose 99 mg/dL (65-115); NT Pro B Type Natriuretic Pept 2503 pg/mL (0-125); Osmolality Calculated 284 mOsm/kg (285-295); Sodium 138 mmol/L (136-145); Total Protein 6.9 g/dL (6.6-8.7)
[2023-02-24 14:12] LABS: Anion Gap 19.7 (5-19); Aspartate Amino Transferase 327 U/L (0-32); Potassium 3.7 mmol/L (3.5-5.1)
[2023-02-24 14:15] VITALS: BP 129/84; PULSE 72; O2SAT 96
[2023-02-24 14:24] LABS: Amphetamines Screen Urine Negative (Negative); Barbiturates Screen Urine Negative (Negative); Benzodiazepines Screen Urine Negative (Negative); Cocaine Screen Urine Negative (Negative); Opiate Screen Urine Negative (Negative); PCP Screen Urine Negative (Negative); THC Screen Urine Negative (Negative)
[2023-02-24 14:25] LABS: Add Urine Microscopic? YES; Bilirubin Urine Neg (Negative); Blood Urine Neg (Negative); Glucose Urine UA Norm (Normal); Ketones Urine Negative (Negative); Leukocyte Esterase Urine 1+ (Negative); Nitrate Urine Negative (Negative); Protein Urine Neg (Negative); RBC Urine 0-4 /hpf (0-2); Specific Gravity, Urine 1.015 (1.005-1.030); Urine Appearance Hazy (CLEAR); Urine Color Yellow (Yellow); Urobilinogen Urine Norm (Negative); WBC Urine 0-4 /hpf (0-5); pH Urine 5 (5-7)
[2023-02-24 14:26] LABS: Add Urine Culture? No; Bacteria Urine 1+ /hpf; Hyaline Casts Urine 55-80 /lpf; Mucus Urine 1+ /hpf
[2023-02-24 15:14] VITALS: BP 149/117; PULSE 80; O2SAT 97
--- NOTE | 2023-02-24 15:51 | ECG_ITS ---
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 Measurements Intervals [place] Rate: 85 P: 58 [place]: 177 QRS: 61 QRSD: 88 T: 72 QT: 412 QTc: 491 Interpretive Statements SINUS RHYTHM POSSIBLE LEFT ATRIAL ENLARGEMENT [-0.1mV P-WAVE IN V1/V2] Compared to ECG 02/24/2023 12:53:22 Prolonged QT interval no longer present Electronically Signed On 02-25-2023 8:30:29 CDT by Philip Amezquita M.D. [email or web address]
[2023-02-24] MEDS: LORazepam 2 mg/mL INJ 1 mL 1 MG IVP (16:04)
[2023-02-24 16:05] LABS: Troponin 5 2HR 7.08 ng/L (0-10)
[2023-02-24 16:19] LABS: Troponin 5 2HR Delta -2.92 ABS# (0-10)
[2023-02-24 16:38] VITALS: BP 149/92; PULSE 80; RESP 22; O2SAT 97
== END 2023-02-24 16:40 ==
PROVIDERS: Emergency Provider Emergency Medicine; PCP Registered Nurse
DX: S06.5XAA Traumatic subdural hemorrhage with loss of consciousness status unknown, initial encounter (principal); F10.10 Alcohol abuse, uncomplicated; Y90.8 Blood alcohol level of 240 mg/100 ml or more; Z79.02 Long term (current) use of antithrombotics/antiplatelets; I25.10 Atherosclerotic heart disease of native coronary artery without angina pectoris; I11.0 Hypertensive heart disease with heart failure; I50.22 Chronic systolic (congestive) heart failure; Z87.891 Personal history of nicotine dependence; W19.XXXA Unspecified fall, initial encounter
CPT/HCPCS: 36415; 70450; 71045; 80053; 80306; 80307; 81001; 83880; 84484; 85025; 93005; 96374; 99285; J2060; J7030

== ENCOUNTER 2025-08-03 17:18 | Emergency (ER) | payer OTHER, SELFPAY ==
[2025-08-03] VITALS (10 sets, daily range): BP systolic 113–146; BP diastolic 62–84; PULSE 80–97; RESP 15–18; TEMP 36.6; O2SAT 99–100
--- NOTE | 2025-08-03 17:12 | CTR_ITS ---
PROCEDURE INFORMATION: Exam: CT Head Without Contrast Exam date and time: 08/03/2025 5:35 PM Age: 60 years old Clinical indication: Stroke-like symptoms; Other: Symptoms of acute stroke TECHNIQUE: Imaging protocol: Computed tomography of the head without contrast. Radiation optimization: All CT scans at this facility use at least one of these dose optimization techniques: automated exposure control; mA and/or kV adjustment per patient size (includes targeted exams where dose is matched to clinical indication); or iterative reconstruction. Other technique: STROKE PROTOCOL was implemented. COMPARISON: CT head wo con* [id number] 02/24/2023 2:00 PM RADIATION DOSE METRICS: Total DLP (mGy-cm): 1008.08 FINDINGS: Brain: Normal. No hemorrhage. Unremarkable white matter. No mass effect. Cerebral ventricles: No ventriculomegaly. Paranasal sinuses: Visualized sinuses are unremarkable. No fluid levels. Mastoid air cells: Visualized mastoid air cells are well aerated. Bones: Unremarkable. No acute fracture. Soft tissues: Unremarkable. CT/CT head thrombolytic [id number] IMPRESSION: No acute intracranial abnormality. ASSESSMENT: ASPECTS ([place] Stroke Program Early CT Score) is 10.
[2025-08-03] MEDS: succinylcholine 20 mg/mL SDV 10mL 100 MG IV (17:20)
[2025-08-03] MEDS: etomidate 2 mg/mL INJ SDV 10 mL 20 MG IVP (17:20)
--- OUTSIDE RECORDS SUMMARY | 2025-08-03 17:22 | XMS_ITS | Clinical Summary ---
Author Organization [facility] Address [address] [place] [address] Care Team Providers Care Cap Coverer Name Role Phone Shantel Keys Conor MONDRAGON Primary Care Provider Allergies Active Allergy Reactions Criticality Noted Date Comments Antihistimine Swelling Low 04/11/2020 Aspirin Rash,Swelling Low 04/11/2020 Medications clopidogreL (PLAVIX) 75 mg TabletIndications: Atherosclerosis of coronary artery, angina presence unspecified, unspecified vessel or lesion type, unspecified whether [place] or transplanted heart,Hx of heart artery stent Take 1 Tablet (75 mg) by mouth daily. 90 Tablet 3 0 Active ezetimibe (ZETIA) 10 mg tablet TAKE 1 TABLET(10 MG) BY MOUTH DAILY 90 Tablet 4 0 Active fluticasone propionate (FLONASE) 50 mcg/spray [place], Suspension nasal inhalerIndications :Acute non-recurrent pansinusitis Administer 2 Sprays in each nostril daily. 48 Gram 5 0 Active Myrbetriq 50 mg Extended Release 24 hour tablet TAKE 1 TABLET(50 MG) BY MOUTH DAILY 30 Tablet 5 1 Active atorvastatin (LIPITOR) 40 mg tabletIndications: Atherosclerosis of coronary artery, angina presence unspecified, unspecified vessel or lesion type, unspecified whether [place] or transplanted heart,Hx of heart artery stent,Mixed hyperlipidemia Take 1 Tablet (40 mg) by mouth daily. 90 Tablet 3 1 Active pregabalin (LYRICA) 25 mg CapsuleIndications :History of left breast cancer,History of mastectomy, left,Neuropathic pain Take 1 Capsule (25 mg) by mouth daily at bedtime. 30 Capsule 1 1 Active carvediloL (COREG) 25 mg tablet TAKE 1 TABLET(25 MG) BY MOUTH TWICE DAILY 180 Tablet 1 1 Active losartan (COZAAR) 50 mg tablet TAKE 1 TABLET(50 MG) BY MOUTH DAILY 30 Tablet 2 1 Active Active Problems No known active problems Immunizations Immunization Administration Dates Next Due Influenza Seasonal Unspecified Formulation IM Social History Tobacco Use Types Packs/Day Years Used Date Smoking Tobacco: Never Smokeless Tobacco: Never Alcohol Use Standard Drinks/Week Comments Yes 0 (1 standard drink = 0.6 oz pur e alcohol) Comments No Sex and Gender Information Value Date Recorded Sex Assigned at Not on file Legal Sex Female 12:56 PM CDT Gender Identity Not on file Sexual Orientation Not on file Last Filed Vital Signs Vital Sign Reading Time Taken Comments Blood Pressure 142/80 11/07/2020 3:06 PM DELICATESSEN CLERK Pulse 92 11/07/2020 3:06 PM DELICATESSEN CLERK Temperature 36.1 C (97 F) 11/07/2020 3:06 PM DELICATESSEN CLERK Respiratory Rate - - Oxygen Saturation 99% 11/07/2020 3:06 PM DELICATESSEN CLERK Inhaled Oxygen Concentration - - Weight 64 kg (141 lb) 11/07/2020 3:06 PM DELICATESSEN CLERK Height 152.4 cm (5') 11/07/2020 3:06 PM DELICATESSEN CLERK Body Mass Index 27.54 11/07/2020 3:06 PM DELICATESSEN CLERK Plan of Treatment Health Maintenance Due Date Last Done Comments Pre-Diabetes and Diabetes Screening 1965 DTAP/TDAP/TD VACCINES (1 - Tdap) 1983 HPV/Cotest (21-29) 1985 CERVICAL CANCER SCREENING 1994 HPV/Cotest (30-65) 1994 PAP SMEAR 1994 COLORECTAL SCREENING 2009 Colorectal Cancer Screening 2009 FIT-DNA Q 3 years 2009 FIT/FOBT Q 1 year 2009 Flex Sig/CT Colonography Q 5 years 2009 ZOSTER VACCINE (1 of 2) 2014 BREAST CANCER SCREENING 03/29/2023 03/29/2022 Preventative Visit- Commercial 09/29/2024 INFLUENZA VACCINE (#1) 2025 07/07/2020 RSV VACCINE (60+ or ) (1 - 1-dose 75+ series) 2039 Insurance [employer] Care Teams Cap Coverer Relationship Specialty Start Date End Date Shantel Keys DO [address] [place] [id number] PCP - General Family Practice 04/11/20
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
--- OUTSIDE RECORDS SUMMARY | 2025-08-03 17:22 | XMS_ITS | Encounter Summary ---
Author Organization [facility] Address [address] [place] [address] Care Team Providers Care Construction Secretary Name Role Phone Shantel Keys Primary Care Provider [phone] Reason for Visit * Reason Comments Med Refill Encounter Details Date Type Department Care Team ([facility] st Contact Info) Description 07/30/2025 Refill [facility] Family [facility] [address] [place] [phone] [facility] [address] [place] [address] Social History Tobacco Use Types Packs/Day Years Used Date Smoking Tobacco: Never Passive Smoke Exposure: Never Smokeless Tobacco: Never Alcohol Use Standard [...] on file Legal Sex Female 10:[address] Gender Identity Not on file Sexual Orientation Not on file documented as of this encounter Miscellaneous Notes * Telephone Encounter - Hanny Portillo LPN - 08/01/2025 7:33 AM CST Medication Refill Request Last Fill Date:01/04/25 2 mL with 6 RF RADHA 01/12/25 Last labs 01/12/25 Recent and Future Visits: Recent Visits Date Type Provider Dept 01/12/25 Office Visit Shonda Grace EXHIBIT SPECIALIST [facility] 03/12/24 Office Visit Shonda Grace EXHIBIT SPECIALIST [facility] Showing recent visits within past 540 days with a meds authorizing provider and meeting all other requirements Future Appointments Date Type Provider Dept 10/21/25 Appointment Shonda Grace FNP [facility] Showing future appointments within next 365 days with a meds authorizing provider and meeting all other requirements Last Labs: Lab Results Component Value Date/Time CHOLTOT 336 (H) 01/12/2025 12:42 PM CHOLTOT 227 (H) 11/06/2023 11:19 AM CHOLTOT 233 (H) 02/18/2022 03:14 PM HDL 102 01/12/2025 12:42 PM HDL 66 11/06/2023 11:19 AM HDL 79 02/18/2022 03:14 PM LDLCALC 216 (H) 01/12/2025 12:42 PM LDLCALC 142 (H) 11/06/2023 11:19 AM LDLCALC 140 (H) 02/18/2022 03:14 PM TRIGLYCERIDE 70 01/12/2025 12:42 PM TRIGLYCERIDE 82 11/06/2023 11:19 AM TRIGLYCERIDE 58 02/18/2022 03:14 PM ALT 95 (H) 01/12/2025 12:42 PM AST 134 (H) 01/12/2025 12:42 PM Rabia MACHUCA - 1965 Check and review of the [place] PDMP performed on 08/01/2025 at 7:[address] documented in this encounter Plan of Treatment Upcoming Encounters Date Type Department Care Team (Late st Contact Info) Description 10/21/2025 10:[address]GE Office Visit [facility] [address] [place] [address] Shonda Grace, DER[facility] [address] [place] [address] documented as of this encounter Visit Diagnoses Not on filedocumented in this encounter Additional Health Concerns Assessment Noted Time PHQ-9 Depression Total Score: 2 01/13/20 25 12:12 PM CDT documented as of this encounter Care Teams Construction Secretary Relationship Specialty Start Date End Date Shantel Keys DO [address] [place] [phone] PCP - General Family Practice 04/11/20 documented as of this encounter
--- OUTSIDE RECORDS SUMMARY | 2025-08-03 17:22 | XMS_ITS | Encounter Summary ---
Author Organization [facility] Address [address] [place] [address] Care Team Providers Care Human Resources Administrator Name Role Phone Shantel Keys Primary Care Provider [phone] Reason for Visit * Reason Comments New Prescription Request Encounter Details Date Type Department Care Team ([facility] st Contact Info) Description 08/03/2025 Telephone [facility] Medicine [place] [address] [place] [address] [facility] [address] [place] [address] New Prescription Request Social History Tobacco Use Types Packs/Day Years [...] on file Legal Sex Female 10:55 PM CASH POSTING CLERK Gender Identity Not on file Sexual Orientation Not on file documented as of this encounter Miscellaneous Notes * Telephone Encounter - Hanny Portillo LPN - 08/03/2025 1:10 PM CST Link to Care now sent to pt via [employer]. Hanny Portillo LPN, 08/03/2025 1:10 PM POSTING CLERK * Telephone Encounter - Radha Burris - 08/03/2025 12:47 PM CST Copied from [facility] #[id number]. Topic: Medication Request >> Aug 03, 2025 12:45 PM Radha Luke wrote: Caller Name: Rabia Burt Callback Number: Telephone Information: Medication (Ask patient/caregiver to spell if possible): Stomach Flu RX Preferred Pharmacy: The patient's preferred pharmacy is [facility] - [place], [place] [address] Call Notes: Patient states she all the symptoms of the flu x's two days: diarrhea, nausea, stomach ache. She refused an appointment, stating she is too sick to come in. Are you currently experiencing any symptoms? Yes, refused appointment. Is there an encounter open? No POSTING CLERK documented in this encounter Plan of Treatment Upcoming Encounters Date Type Department Care Team (Late st Contact Info) Description 10/21/2025 10:20 AM CASH POSTING CLERK Office Visit [facility] [address] [place] [phone] Shonda Grace FNP [address] [place] [phone] documented as of this encounter Visit Diagnoses Not on filedocumented in this encounter Additional Health Concerns Assessment Noted Time PHQ-9 Depression Total Score: 2 01/13/20 25 12:12 PM CDT documented as of this encounter Care Teams Human Resources Administrator Relationship Specialty Start Date End Date Ludmila, Shantel L, DO [address] [place] [phone] PCP - General Family Practice 04/11/20 documented as of this encounter
--- OUTSIDE RECORDS SUMMARY | 2025-08-03 17:22 | XMS_ITS | Encounter Summary ---
Author Organization [facility] Address [address] [place] [address] Care Team Providers Care Pheresis Nurse Name Role Phone Shantel Keys DO Primary Care Provider [phone] Reason for Visit * Reason Comments Clinical Consult Before Scheduling Encounter Details Date Type Department Care Team (Late st Contact Info) Description 08/03/[address] [facility] Family Medicine [place] [address] [place] [phone] LudmilaShantel ocasio DO [address] [place] [address] Social History Tobacco Use Types [...] on file Legal Sex Female 10:55 PM LEAD CARE MANAGER Gender Identity Not on file Sexual Orientation Not on file documented as of this encounter Miscellaneous Notes * Telephone Encounter - Hanny Portillo, NANDA - 08/03/2025 3:01 PM CST Adult patient calling with GI symptoms: Phone management by nurse completed per protocol. Caller voiced understanding. Questions answered to their satisfaction. Aware of when and why to seek additional care. Onset of new/worsening symptom(s)? Friday The patient has the following symptoms or concerns: [] Temp >100.4 in last 48 hours [] Abdominal pain Severity: [] Mild [] Moderate [] Severe Location: [] RUQ [] RLQ [] LUQ [] LLQ [] Midepigastric [] Periumbilical Frequency: [] Constant [] Intermittent Quality: [] Sharp [] Aching [] Burning [] Dull [] Cramping Pattern: [] Constant [] Intermittent Radiates to: [x] Nausea [x] Vomiting Frequency: [x] 1-3 times in last 24 hours [] >3 times in last 24 hours [] >6 times in last 24hours [] Intermittent [] Bright red blood [] Coffee ground emesis [x] Diarrhea Description: [] Watery [x] Loose [] Bloody [] Mucous Frequency: [] 1-3 times in last 4 hours [] >4 times in last 4 hours [] Blood in stool Color: [] Bright red [] Black, tarry Severity: [] Drops, spots, streaks on toilet paper [] Mild (more than just a few drops or streaks) [] Moderate (small clots, passing blood without stool, or toilet water turns red) [] Severe (large clots) [] Heartburn [] Constipation [x] Dizziness or weakness [] Chest discomfort []Pain []Pressure [] Recent antibiotics [] Recent exposure to G/I illness [] Recent travel [] Has tried medication or treatment at home Medications/Treatments tried: denies trying any medications Other pertinent information: Pt stated she started getting sick Friday with diarrhea and vomiting. Pt says she is not able to keep anything down and feels weak. Reports diarrhea x1 daily. Vomiting x 2 today. Pt also reports weakness. Pt refuses to come in says she is too weak to come in. She was also advised to go to but she stated she is on her own and has nobody to take her. Pt is asking for something to be sent in for her. She said her son can pick it up when he gets off work. I asked her if her son could take her toUC care when he gets off work and she said no. Pt said she is not able to do a VV as she does not know how. Pt was sent a link via [employer] for care now and pt says she does not know how to access that and is not able to concentrate. / Status: Patient likely cannot become . [] If , any vaginal bleeding? [] no [] yes Phone Management by Nurse: nausea/vomiting No eating or drinking for 1 hour after last vomiting, then begin sipping clear liquids for 12 hours(gelatin, water, sports drinks, flat soda, clear broth, or apple juice). Avoid citrus juices After 12 hours begin bland foods (rice, soda crackers, dry toast, applesauce, mashed potatoes, pretzels, bananas) After 12 hours try regular diet as tolerated OTC Antacid, Pepto-Bismol (stools will turn black with use) or Emetrol per package directions Retake oral emesis meds if vomiting within 30 minutes of taking if persistent vomiting for >24 hours despite use of OTC antiemetics, route to provider. Phone Management by Nurse: diarrhea Pepto-Bismol per package directions, particularly if also vomiting (stools will turn black with use) Imodium per package directions for diarrhea alone. Acetaminophen or Ibuprofen for fever - see appendix for contraindications and precautions Avoid spread--wash hands, do not share cups, clean restroom after use etc. When and Why to Call Us Back If not better in 24-48 hours or warning sign/symptoms develop CARE MANAGER * Telephone Encounter - Erin Lovelace 08/03/2025 2:58 PM CST Copied from [facility] #[id number]. Topic: Symptomatic Care >> Aug 03, 2025 2:55 PM Erin Ackerman wrote: Has this patient seen any provider (current or former) at the requested clinic in the past? Yes, Select the appropriate age range and symptom Patient has symptoms and is seeking care. Caller Name: pt Callback Number: Telephone Information: Call Notes: vomiting and very weak Age Range/Symptom: Adult: 18+ & High Risk Fainting, passing out, vertigo, dizziness, feeling ofnearly passing out, loss of balance Is there an encounter open? Yes Transferred to N line and Hanny answered call. CARE MANAGER documented in this encounter Plan of Treatment Upcoming Encounters Date Type Department Care Team (Late st Contact Info) Description 10/21/2025 10:20 AM LEAD CARE MANAGER Office Visit [facility] Medicine [place] [address] [place] [address] Shonda Grace, [facility] [address] [place] [phone] documented as of this encounter Visit Diagnoses Not on filedocumented in this encounter Additional Health Concerns Assessment Noted Time PHQ-9 Depression Total Score: 2 01/13/20 25 12:12 PM CDT documented as of this encounter Care Teams Pheresis Nurse Relationship Specialty Start Date End Date Shantel Keys DO [address] [place] [address] PCP - General Family Practice 04/11/20 documented as of this encounter
--- NOTE | 2025-08-03 17:25 | W.ED.SEIZURE ---
HPI - Seizure General: Chief Complaint: Seizure Stated Complaint: Stroke Alert History of Present Illness: HPI Narrative: 60-year-old female with a history of coronary artery disease, congestive heart failure, hyperlipidemia, hypertension and alcohol abuse who presents to the emergency room after having had a seizure. She is unresponsive on presentation and intubated emergently upon arrival. Reports that seizure lasted at least 15 to 20 minutes. She received Versed en route. No other history able to be obtained initially. Related Data Home Medications ?Medication ?Instructions ?Recorded ?Confirmed clopidogrel 75 mg tablet 75 mg PO DAILY 12/14/19 04/16/24 carvedilol 25 mg tablet 25 mg PO BID 12/11/20 04/16/24 tolterodine 4 mg capsule,extended 4 mg PO DAILY 01/07/23 04/16/24 release 24 hr cholecalciferol (vitamin D3) 25 25 mcg PO DAILY 02/24/23 04/16/24 mcg (1,000 unit) capsule (Vitamin D3) pravastatin 20 mg tablet 20 mg PO DAILY 02/24/23 04/16/24 zinc acetate 50 mg (zinc) capsule 50 mg PO DAILY 02/24/23 04/16/24 metformin 1,000 mg tablet 1,000 mg PO DAILY 04/16/24 04/16/24 valsartan 160 1 tab PO DAILY 04/16/24 04/16/24 mg-hydrochlorothiazide 12.5 mg tablet Previous Rx's ?Medication ?Instructions ?Recorded furosemide 20 mg tablet 20 mg PO DAILY PRN edema #30 tabs 12/14/21 alirocumab 75 mg/mL subcutaneous 75 mg SUBCUT Q14D #2 mL 04/26/22 pen injector (Praluent Pen) nitroglycerin 0.4 mg sublingual 0.4 mg sublingual Q5M PRN chest 11/14/22 tablet pain #25 tabs Allergies Allergy/AdvReac Type Severity Reaction Status Date / Time Antihistamines - Alkylamine Allergy Unknown Verified 04/16/24 10:30 aspirin Allergy Unknown Verified 04/16/24 10:30 Review of Systems General: Reports: ROS unobtainable due to medical condition and ROS unobtainable due to mental status PFS ED PFSH: Medical History (Updated 08/03/25 @ 20:19 by Bella Bojorquez MD) Ischemic cardiomyopathy Hypercholesteremia CAD (coronary artery disease) Chronic systolic heart failure HTN (hypertension) Family History Other Cancer Myocardial infarction Postsurgical cardiac pacemaker in situ Social History Smoking and tobacco/nicotine status: former use of tobacco/nicotine Alcohol intake: current Substance/Drug Use: never Physical Exam Narrative: EXAM NARRATIVE: General: responds minimally to painful stimuli. Skin: Warm, dry Head: Normocephalic, atraumatic. Neck: Supple, trachea midline. Eye: Extraocular movements are intact. Ears, nose, mouth and throat: Dry oral mucosa. Blood in her oropharynx Cardiovascular: Regular rate and rhythm, Normal peripheral perfusion. Respiratory: Lungs are clear to auscultation, respirations are non-labored, breath sounds are equal, Symmetrical chest wall expansion. Gastrointestinal: Soft, Non distended Musculoskeletal: no deformity. Neurological: Not Alert and oriented, No obvious focal neurological deficit observed. Psychiatric: unable to assess. Course Vital Signs: Vital signs: Vital Signs Temperature 97.8 F 08/03/25 18:12 Pulse Rate 84 08/03/25 20:04 Respiratory Rate 16 08/03/25 20:04 Blood Pressure 146/84 08/03/25 20:04 Pulse Oximetry 100 08/03/25 20:04 Oxygen Delivery Me thod Mechanical Ventil ation 08/03/25 20:04 Fraction of Inspir ed Oxygen 100 08/03/25 20:03 MDM - Seizure MDM Narrative Medical decision making narrative: Medical decision making: Patient's reason for coming to the emergency room seizure, unresponsive Social determinants patient is retired and lives with his son. I reviewed the patient's medical record. Most recent visit was to cardiology. She follows with them regularly. I reviewed the patient's current home meds Alternate historians: Patient obtained from sons. The son that lives with her said he woke up to her having a seizure. He says he does not know that she is ever had 1 before. Between her and the other son there is some discourse on whether or not she still drinks heavily. I did add an alcohol level on at that point. Concerned that this could be alcohol withdrawal seizures. Differential diagnosis for this patient with a complaint of seizure like activity would include but not be limited to, and based on the above HPI, review of systems and physical exam: seizure, DT's, alcohol withdrawal, brain malignancy, pseudo-seizure, syncope. Orders placed to evaluate differential diagnosis based on the above differential, HPI and physical exam Endotracheal intubation Time: See nursing notes Confirmed: Patient, procedure, and site correct. Consent: , Emergent. Indication: Respiratory failure. Procedural sedation: Succinylcholine and etomidate . Monitoring: Cardiac, blood pressure, continuous pulse oximetry. Preparation: Pre oxygenated, Inline stabilization of cervical spine maintained, Ensured proper cuff inflation. Technique: Oral intubation: A 7.5 ET tube was inserted, glydescope, visualized cords and ett passing through cords. . Confirmation of tube placement: Bilateral chest rise, Positive color change indicated on end title CO2. Post procedure exam: Equal breath sounds. Complications: None. Performed by: Self. Total time: [address] head: No acute intracranial process. No intracranial hemorrhage, no evidence of infarct. No evidence of acute fracture. This was reviewed and interpreted by myself the emergency room physician. I also reviewed the radiology report. Chest x-ray: ET tube in place. NG tube in place. No obvious focal infiltrates. This was reviewed and interpreted by myself the emergency room physician. I also reviewed the radiology report. Lab Review: Laboratory results were reviewed and interpreted by myself the emergency room physician No leukocytosis. No anemia. No renal failure. Sodium is quite low at 124. She has been normal in the past. Blood alcohol level is elevated at 92. Drug screen is negative. Urinalysis shows a slight infection. EKG: Time 1810. Rate 90. Atrial fibrillation with controlled rate, No ST-T changes, no ectopy, This was reviewed and interpreted by myself the ER physician At 1815 Assessment of risk: Level of risk: Patient is high risk. Hospitalization considerations: Patient needs admitted and will require transfer as we do not have ICU beds, he will need an platform builder and possibly a neurologist as it is unclear if this is an alcohol withdrawal seizure or something other Reexamination: patient started to wake up on the vent. Is requiring more sedation. O2 sats are good. Pressures have been good. Consultation: I spoke with the platform builder at [facility] in [place]. He is accepted the patient to the ICU. Patient needs urgent transfer so air transport is being requested. Assessment and plan: Seizure Respiratory failure Alcohol abuse Possible sepsis ?Patient intubated emergently. = Currently being sedated with Versed and propofol. She has had some purposeful movements on the vent -Prior to obtaining history from family/obvious concern for sepsis so she did receive sepsis fluids and antibiotics -2 L normal saline bolus. Fluid volumes based on ideal body weight. -Broad-spectrum antibiotics were administered. Zyvox and meropenem -Sepsis quality measures. -Lactic acid with a reflex was ordered. -Blood cultures were ordered. ?I reevaluated the patient's volume status after sepsis fluids were given. -I discussed the patient with the accepting physician on-call. - Discussed findings and plan with patient. Answered any questions. - All laboratory values were reviewed and interpreted personally by myself, the ER physician - All imaging was reviewed and interpreted personally by myself, the ER physician. - Evaluation and treatment of this problem were appropriate in the emergency setting Critical Care: -I spent a total of 55 minutes of critical care time managing the patient, independent of any other practitioner. -The time involved in the performance of separately reportable procedures was not counted towards critical care time. Lab Data 08/03/25 17:23 08/03/25 17:23 Labs: Radiology Impressions Head CT 08/03/25 17:12 IMPRESSION: No acute intracranial abnormality. ASSESSMENT: ASPECTS ([place] Stroke Program Early CT Score) is 10. Chest X-Ray 08/03/25 17:43 IMPRESSION: 1. Endotracheal tube terminates above the khadar by 2.5 cm. 2. Enteric catheter present in satisfactory position. Laboratory Results WBC 5.52 10^3/uL (3.29-11.43) 08/03/25: RBC 4.32 10^6/uL (3.85-5.65) 08/03/25 17: Hgb 14.30 g/dL (11.27-16.99) 08/03/25 17: Hct 40.7 % (36-47) 08/03/25: MCV 94.2 fl (85-98) 08/03/25 17: MCH 33.1 pg (27-33) H 08/03/25: MCHC 35.1 g/dL (30-55) 08/03/25: RDW 11.3 % (12.1-15.1) L 08/03/25 17:23 Plt Count 147 10^3/cmm (157-399) L 08/03/25 17:23 MPV 10.3 fL (7.4-10.4) 08/03/25 17:23 Neut % (Auto) 72.7 % 08/03/25 17:23 Lymph % (Auto) 21.2 % 08/03/25 17:23 Waldo % (Auto) 4.9 % 08/03/25 17:23 Eos % (Auto) 0.4 % 08/03/25 17:23 Baso % (Auto) 0.4 % 08/03/25 17:23 Neut # (Auto) 4.02 10^3/uL (1.8-7.7) 08/03/25 17:23 Lymph # (Auto) 1.2 10^3/uL (0.8-4.8) 08/03/25 17:23 [place]do # (Auto) 0.3 10^3/uL (0.2-0.9) 08/03/25 17:23 Eos # (Auto) 0.0 10^3/uL (0.0-0.8) 08/03/25 17:23 Baso # (Auto) 0.0 10^3/uL (0.0-0.1) 08/03/25 17: Nucleated RBC % (auto) 0 % 08/03/25 17: Nucleated RBCs # 0.0 /100WBC 08/03/25 17:23 PT 14.90 SECONDS (12.1-14.9) 08/03/25 17: INR 1.09 (0.8-1.2) 08/03/25 17:23 APTT 30.4 SECONDS (23.9-36.7) 08/03/25 17:23 Specimen Type Arterial 08/03/25 17:37 Sample Site Radial, left 08/03/25 17:37 ABG pH 7.31 (7.35-7.45) L 08/03/25 17:37 ABG pCO2 41.6 mmHg (35-45) 08/03/25 17:37 ABG pO2 289.0 mmHg (80.0-100.0) H 08/03/25 17:37 ABG HCO3 20.7 mmol/L (22-26) L 08/03/25 17:37 ABG O2 Saturation > 99.1 08/03/25 17:37 ABG Base Excess -5.5 mmol/L (-2.0-2.0) L 08/03/25 17:37 Michel Test Pos 08/03/25 17:37 A-a O2 Gradient Not Reportable 08/03/25 17:37 Hematocrit 45.8 % (37-47) 08/03/25 17:37 Hgb O2 Saturation 97.7 % (95-100) 08/03/25 17:37 Carboxyhemoglobin 0.9 %THgb (0.4-20.1) 08/03/25 17:37 Methemoglobin 1.3 % (0.4-1.5) 08/03/25 17:37 Total Hemoglobin 14.9 g/dL (12-16) 08/03/25 17:37 Sodium 123.0 mmol/L (131-143) L 08/03/25 17:37 Potassium 3.6 mmol/L (3.5-5.0) 08/03/25 17:37 Glucose 117.0 mg/dL (70-115) H 08/03/25 17:37 Ionized Calcium 1.1 mmol/L (1.1-1.4) 08/03/25 17:37 O2 Delivery Device Ambu 08/03/25 17:37 O2 Liters/Min 15.0 % 08/03/25 17:37 [facility] Machine ID Wlci 08/03/25 17:37 Sodium 124 mmol/L (136-145) L 08/03/25 17:23 Potassium 3.7 mmol/L (3.5-5.1) 08/03/25 17:23 Chloride 86 mmol/L (98-107) L 08/03/25 17:23 Carbon Dioxide 16 mmol/L (22-29) L 08/03/25 17:23 Anion Gap 25.7 (5-19) H 08/03/25 17:23 BUN 5 mg/dL (8-23) L 08/03/25 17:23 Creatinine 0.6 mg/dL (0.5-0.9) 08/03/25 17:23 GFR Calculation 101.6 mL/min (90-130) 08/03/25 17:23 Glucose 137 mg/dL (65-115) H 08/03/25 17:23 POC Glucose 110 mg/dL (70-110) 08/03/25 17:53 Calculated Osmolality 257 mOsm/kg (285-295) L 08/03/25 17:23 Lactic Acid 9.7 mmol/L (0.5-2.2) H* 08/03/25 17:23 Calcium 7.9 mg/dL (8.5-10.5) L 08/03/25 17:23 Total Bilirubin 2.2 mg/dL (0.15-1.2) H 08/03/25 17:23 AST 168 U/L (0-32) H 08/03/25 17:23 ALT 88 U/L (0-33) H 08/03/25 17:23 Alkaline Phosphatase 221 U/L (35-105) H 08/03/25 17:23 Total Protein 6.4 g/dL (6.6-8.7) L 08/03/25 17:23 Albumin 3.5 g/dL (3.5-5.2) 08/03/25 17:23 Globulin 2.9 g/dL (1.3-4.6) 08/03/25 17:23 Urine Color Yellow (Yellow) 08/03/25 18:20 Urine Appearance Turbid (CLEAR) A 08/03/25 18:20 Urine pH 7.5 (5-7) 08/03/25 18:20 Ur Specific [place] 1.012 (1.005-1.030) 08/03/25 18:20 Urine Protein Trace (Negative) A 08/03/25 18:20 Urine Glucose (UA) Negative (Normal) 08/03/25 18:20 Urine Ketones Negative (Negative) 08/03/25 18:20 Urine Blood Trace (Negative) A 08/03/25 18:20 Urine Nitrate Negative (Negative) 08/03/25 18:20 Urine Bilirubin Negative (Negative) 08/03/25 18:20 Urine Urobilinogen 1.0 mg/dL (Negative) 08/03/25 18:20 Ur Leukocyte Esterase 3+ (Negative) A 08/03/25 18:20 Urine RBC 0-4 /hpf (0-2) H 08/03/25 18:20 Urine WBC 5-10 /hpf (0-5) H 08/03/25 18:20 Ur Squamous Epith Cells 0-4 /hpf (0-5) H 08/03/25 18:20 Amorphous Sediment Not Reportable 08/03/25 18:20 Urine Bacteria 2+ /hpf (NONE) H 08/03/25 18:20 Urine Opiates Screen Negative ng/mL (Negative) 08/03/25 18:20 Ur Barbiturates Screen Negative ng/mL (Negative) 08/03/25 18:20 Ur Phencyclidine Scrn Negative ng/mL (Negative) 08/03/25 18:20 Ur Amphetamines Screen Negative ng/mL (Negative) 08/03/25 18:20 U Benzodiazepines Scrn Negative ng/mL (Negative) 08/03/25 18:20 Urine Cocaine Screen Negative ng/mL (Negative) 08/03/25 18:20 U Marijuana (THC) Screen Negative ng/mL (Negative) 08/03/25 18:20 Ethyl Alcohol 92 mg/dL (0-10) H 08/03/25 17:23 All radiology interpretation(s) finalized by discharge Discharge Plan Discharge Patient Disposition: Xfer Short-Term Hosp Clinical Impression: Seizure, Alcohol abuse, Respiratory failure Condition: Stable Referrals: Shonda Grace FNP [Primary Care Provider] Print Language: Guatemalan Coding Level of Care Code 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
[2025-08-03 17:36] LABS: Hematocrit 40.7 % (36-47); Hemoglobin 14.30 g/dL (11.27-16.99); Mean Corpuscular HGB Conc 35.1 g/dL (30-55); Mean Corpuscular Hemoglobin 33.1 pg (27-33); Mean Corpuscular Volume 94.2 fl (85-98); Nucleated Red Blood Cells % 0 %; Platelet Count 147 10^3/cmm (157-399); Red Blood Count 4.32 10^6/uL (3.85-5.65); White Blood Count 5.52 10^3/uL (3.29-11.43)
--- NOTE | 2025-08-03 17:43 | XRR_ITS ---
PROCEDURE INFORMATION: Exam: XR Chest Exam date and time: 08/03/2025 5:17 PM Age: 60 years old Clinical indication: Device placement; Ng tube; Additional info: Tube placement TECHNIQUE: Imaging protocol: Radiologic exam of the chest. Views: 1 view. COMPARISON: CR XR chest 1V portable [id number] 02/24/2023 12:36 PM FINDINGS: Tubes, catheters and devices: Enteric catheter present in satisfactory position. Endotracheal tube terminates above the khadar by 2.5 cm. Lungs: Unremarkable. No consolidation. Pleural spaces: Unremarkable. No pleural effusion. No pneumothorax. Heart/Mediastinum: Unremarkable. No cardiomegaly. Bones/joints: Unremarkable. XR/XR chest 1V portable [id number] IMPRESSION: 1. Endotracheal tube terminates above the khadar by 2.5 cm. 2. Enteric catheter present in satisfactory position.
[2025-08-03 17:48] LABS: ABG PCO2 41.6 mmHg (35-45); ABG PH Result 7.31 (7.35-7.45); Arterial Blood Gas Hematocrit 45.8 % (37-47); Blood Gas Allen Test Pos; Blood Gas LPM 15.0 %; Blood Gas Operator Identificat WLCI; Blood Gas Sample Site Radial, left; Blood Gas Sample Type Arterial; Carboxyhemoglobin 0.9 %THgb (0.4-20.1); Glucose Level-ABG 117.0 mg/dL (70-115); HCO3 ABG 20.7 mmol/L (22-26); Ionized Calcium Level - ABG 1.1 mmol/L (1.1-1.4); Methemoglobin 1.3 % (0.4-1.5); Oxygen Saturation ABG > 99.1; PO2 ABG 289.0 mmHg (80.0-100.0); Potassium Level - ABG 3.6 mmol/L (3.5-5.0); Sodium Level - ABG 123.0 mmol/L (131-143)
[2025-08-03] MEDS: levETIRAcetam 2,000 MG/200 ML PREMIX 400 MG IV (17:49)
[2025-08-03] MEDS: midazolam hcl 100 MG/100 ML BAG IV (17:50)
[2025-08-03 17:53] LABS: INR 1.09 (0.8-1.2); Prothrombin Time 14.90 SECONDS (12.1-14.9)
[2025-08-03 17:54] LABS: Partial Thromboplastin Time 30.4 SECONDS (23.9-36.7)
[2025-08-03 17:58] LABS: Alanine Aminotransferase 88 U/L (0-33); Albumin Level 3.5 g/dL (3.5-5.2); Alkaline Phosphatase 221 U/L (35-105); Blood Urea Nitrogen 5 mg/dL (8-23); Calcium 7.9 mg/dL (8.5-10.5); Carbon Dioxide 16 mmol/L (22-29); Chloride 86 mmol/L (98-107); Globulin 2.9 g/dL (1.3-4.6); Glucose 137 mg/dL (65-115); Osmolality Calculated 257 mOsm/kg (285-295); Sodium 124 mmol/L (136-145); Total Protein 6.4 g/dL (6.6-8.7)
--- NOTE | 2025-08-03 17:59 | PC.NURSE ---
RSI at 1720. PT given 20 MG IV etomidate and 100MG IV succinylcholine per Dr. Bojorquez verbal order. This nurse, house sup, respiratory, and physician at bedside for intubation.
[2025-08-03 18:02] LABS: Anion Gap 25.7 (5-19); Aspartate Amino Transferase 168 U/L (0-32); Lactic Sepsis W/Reflex 9.7 mmol/L (0.5-2.2); Potassium 3.7 mmol/L (3.5-5.1)
--- NOTE | 2025-08-03 18:10 | ECG_ITS ---
[facility] 2025-08-03 Pat Name: Rabia Burt Department: Room: Gender: Female Ironer: : 1965 Requested By: Bella Perdomo Order Number: [id number] [id number] MD: Tracy Michelle M.D. 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 [email or web address]
[2025-08-03 18:36] LABS: Glucose Urine UA Negative (Normal); Nitrate Urine Negative (Negative); Specific Gravity, Urine 1.012 (1.005-1.030)
[2025-08-03 18:42] LABS: PCP Screen Urine Negative (Negative)
[2025-08-03 19:16] LABS: Reflex Lactate Order REFLEX LACTIC ORDERD
[2025-08-03] MEDS: linezolid premix 600 MG/300 ML PREMIX 300 MG IV (19:21)
[2025-08-03] MEDS: fentaNYL 1,000 MCG/100 ML BAG 2.5 MCG IV (19:32)
[2025-08-03 19:51] LABS: Alcohol Level 92 mg/dL (0-10)
--- NOTE | 2025-08-03 20:01 | PC.NURSE ---
MD Bojorquez provided verbal order to increased Versed to 8mg/hr. Protocol states max is 6. okayed increasing. Due to difficult sedation.
[2025-08-03] MEDS: propofol 1,000 MG/100 ML INJ 2.14 MG IV (20:18)
[2025-08-03 20:36] LABS: Lactic Acid level (Lactate) 2.8 mmol/L (0.5-2.2)
--- NOTE | 2025-08-03 21:03 | PC.NURSE ---
Fentanyl drip wasted with Edelmira RN in pyxis. Placed in black bio-hazard box.
== END 2025-08-03 21:35 | disposition short-term general hospital (02) ==
PROVIDERS: Emergency Provider Emergency Medicine; PCP Nurse Practitioner Family
DX: R56.9 Unspecified convulsions (principal); F10.129 Alcohol abuse with intoxication, unspecified; Y90.4 Blood alcohol level of 80-99 mg/100 ml; J96.90 Respiratory failure, unspecified, unspecified whether with hypoxia or hypercapnia; Z87.891 Personal history of nicotine dependence; I25.10 Atherosclerotic heart disease of native coronary artery without angina pectoris; I11.0 Hypertensive heart disease with heart failure; I50.22 Chronic systolic (congestive) heart failure; E78.5 Hyperlipidemia, unspecified
CPT/HCPCS: 31500; 36415; 36416; 36600; 51702; 70450; 71045; 80051; 80053; 80306; 80307; 81001; 82330; 82805; 82962; 83605; 85025; 85610; 85730; 87040; 87070; 87086; 87205; 93005; 94002; 94799; 96365; 96367; 96375; 99291; J0330; J1953; J2020; J2185; J2250; J2704; J3010; J3490; J7030